=== PATIENT | female | born 1980 | race Caucasian/White ===

== ENCOUNTER 2017-07-03 01:29 | Emergency (ER) | payer OTHER ==
[2017-07-03 04:14] VITALS: BP 131/86
== END 2017-07-03 05:20 | disposition home or self-care (01) ==
LOC: ED 01:29
DX: M54.2 Cervicalgia (principal); R51 Headache

== ENCOUNTER 2018-07-29 17:42 | Emergency (ER) | payer OTHER ==
[~2018-07-29] VITALS: Ht 160 cm; Wt 90.7 kg
[2018-07-29 17:49] VITALS: Ht 160 cm; Wt 90.7 kg
[2018-07-29 22:05] VITALS: BP 120/70
== END 2018-07-29 22:05 | disposition home or self-care (01) ==
LOC: ED 17:42
DX: S33.5XXA Sprain of ligaments of lumbar spine, initial encounter (principal); V49.49XA Driver injured in collision with other motor vehicles in traffic accident, initial encounter; Y93.I9 Activity, other involving external motion; Y92.413 State road as the place of occurrence of the external cause; Y99.8 Other external cause status
CPT/HCPCS: J1885

== ENCOUNTER 2019-03-29 06:51 | Inpatient (IN) | payer OTHER ==
[~2019-03-29] VITALS: Ht 172.7 cm; Wt 90.0 kg
--- NOTE | 2019-03-29 07:12 | NUR ---
PER PT SHE HAS BEEN HAVING GENERALIZED BODY PAIN SINCE TUESDAY. PER PT SAVANNAH LLQ/RLQ PRESSURE PAIN. PT ALSO HAS SAVANNAH FLANK PAIN. PT STS THAT WHEN SHE STANDS UP SHE FEELS "DIZZY" WHEN STANDING. PT STS THAT SHE FEELS BETTER WHEN STANDING. PT STS SHE HAS SOME NAUSEA NO VOMITING. PT DENIES ANY BLURRY VISION. PT DENIES ANY ANURIA. PT STS THAT SHE HAS NEVER FELT THIS WAY BEFORE. VSS. RESP E/U. NO DISTRESS NOTED. WILL CONTINUE TO MONITOR.
[2019-03-29 07:44] LABS: microscopic required? YES; urine erythrocyte 3+ (NEGATIVE)
[2019-03-29 07:48] LABS: PLATELET COUNT 165 x10^3mcL (130-400); RED CELL DISTRIBUTION WIDTH 14.1 % (11.5-14.5)
[2019-03-29 07:53] LABS: CALCIUM 8.1 mg/dL (8.5-10.1); CARBON DIOXIDE 22.7 mmol/L (21-32); CHLORIDE SERUM 102 mmol/L (98-107); CREATININE SERUM 0.9 mg/dL (0.6-1.0); GFR1 > 60 mL/min; GLUCOSE SERUM 164 mg/dL (74-106); POTASSIUM SERUM 3.1 mmol/L (3.5-5.1); SODIUM SERUM 135 mmol/L (136-145)
[2019-03-29 07:54] LABS: BASOPHIL % 0 % (0-2)
[2019-03-29 08:03] LABS: ALKALINE PHOSPHATASE 94 U/L (46-116); ALT/SGPT 21 U/L (14-59); AST/SGOT 10 U/L (15-37); BILIRUBIN TOTAL 0.84 mg/dL (0.20-1.00); TOTAL PROTEIN, SERUM 7.2 g/dL (6.4-8.2)
[2019-03-29 08:04] LABS: AMPHETAMINE QUAL UR POSITIVE (See below)
--- NOTE | 2019-03-29 08:07 | NUR ---
PT TAKEN TO XRAY VIA WHEELCHAIR, S/L. PT ASKING FOR PAIN MEDS, THIS RN WILL MAKE PRIMARY RN AWARE. NO APPARENT S/S OF DISTRESS.
[2019-03-29 08:08] LABS: FREE T4 1.11 ng/dL (0.76-1.46); T4(THYROXINE) 5.5 ug/dL (4.7-13.3)
[2019-03-29 08:18] LABS: CREATINE KINASE 20 U/L (26-192)
[2019-03-29 08:30] LABS: T3 TOTAL 0.69 ng/mL
[2019-03-29 08:31] LABS: ALBUMIN 2.9 g/dL (3.4-5.0)
[2019-03-29 08:32] LABS: C REACTIVE PROTEIN 26.4 mg/dL (<=0.9)
[2019-03-29 08:46] LABS: ERYTHROCYTE SED RATE 58 mm/hr (0-20)
[2019-03-29 08:47] LABS: CK-MB < 0.5 ng/mL (0-3.6)
--- NOTE | 2019-03-29 11:05 | NUR ---
REPORT GIVEN TO HOWARD ROSADO, TO ASSUME CARE OF PT.
[2019-03-29 11:07] LABS: CHOLESTEROL/HDL RATIO 2.8; MAGNESIUM 1.7 mg/dL (1.8-2.4)
--- NOTE | 2019-03-29 11:44 | NUR ---
LATE ENTRY: RECEIVED PT FROM ED [facility]IA [employer] AT 11:20 AM. PT AMBULATORY WITH FULL ROM, GAIT STEADY. ACCOMPANIED BY FAMILY MEMBER. AA/OX4. NO S/S OF ACUTE DISTRESS. CAME TO ED DUE TO GENERALIZED BODY ACHES X3 DAYS WITH C/O INTERMITTENT DIZZINESS/NAUSEA/ASH. GIVEN PO PAIN MED, SEE MAR. RATES PAIN 10/10 GENERALIZED ACHING. WORSE WITH ACTIVITY. RELIEVE BY PAIN MEDS/RESTING. FOLLOWS COMPLEX COMMANDS, RESPONDS TO VERBAL STIMULI. FACE SYMMETRICAL. SPEECH CLEAR. INSTRUCTED TO USE CALL LIGHT TO CALL FOR ASSISTANCE BEFORE ATTEMPTING TO GET OOB. VERBALIZED UNDERSTANDING. FALL PRECAUTIONS IN PLACE. IV WNL TO LAC, NO REDNESS, NO SWELLING, NO INFILTRATION. PATENT AND FLUSHES WELL. IV FLUIDS FLOWING. NO CHEST PAIN. MEDSURG. PULSES +2 BUE/BLE. NO EDEMA. CAP REFILLS <3 SEC BUE/BLE. NO TENTING NOTED. REPORTS MILD SOB WITH ANXIETY. O2 SAT 96% ON ROOM AIR. RR EVEN/SHALLOW/UNLABORED AT THIS TIME. REPORTS CHILLS. TEMP 99.7F. BED IN LOW POSITION. CALL LIGHT WITHIN REACH. ORIENTED TO SURROUNDINGS. SKIN WARM, DRY, INTACT. SIDE RAILS UP X2. WILL CONTINUE TO MONITOR.
[2019-03-29 11:49] VITALS: BP 131/81
--- NOTE | 2019-03-29 12:22 | NUR ---
PT RESTING IN BED WITH BOTH EYES CLOSED. NO S/S OF ACUTE DISTRESS. NO SOB ON ROOM AIR. REPORTS PAIN DECREASED, REPORTS PAIN TOLERABLE AT THIS TIME, RATES GENERALIZED BODY ACHE PAIN 2/10. IV WNL TO LAC, NO REDNESS, NO SWELLING, NO INFILTRATION. PATENT AND FLUSHES WELL. IV FLUIDS FLOWING. NO N/V. NO ASH. NO DIZZINESS. AMBULATORY WITH FULL ROM, GAIT STEADY. VOID X1. NO COMPLAINT OF PAIN WITH URINATION. BED IN LOW POSITION. CALL LIGHT WITHIN REACH. WILL CONTINUE TO MONITOR.
--- NOTE | 2019-03-29 16:14 | NUR ---
PT RESTING IN BED WITH BOTH EYES CLOSED. NO S/S OF ACUTE DISTRESS. NO SOB ON ROOM AIR. NO S/S OF PAIN. CALM/COOPERATIVE. TOLERATING REGULAR DIET WELL. NO N/V AT THIS TIME. BED IN LOW POSITION. CALL LIGHT WITHIN REACH. WILL CONTINUE TO MONITOR.
[2019-03-29 16:27] VITALS: BP 91/63
--- NOTE | 2019-03-29 18:26 | NUR ---
PT LAYING IN BED. AA/OX4. DENIES PAIN AT THIS TIME. NO N/V. NO SOB ON ROOM AIR. NO ASH. NO DIZZINESS. NO CHEST PAIN. NO CHILLS. VS STABLE. CALM/COOPERATIVE. IV WNL TO LAC, PATENT AND FLUSHES WELL. IV FLUIDS FLOWING. PT CALM/COOPERATIVE. BED IN LOW POSITION. CALL LIGHT WITHIN REACH. FAMILY AT BEDSIDE. TOLERATING REGULAR DIET WELL. WILL ENDORSE TO ONCOMING SHIFT.
--- NOTE | 2019-03-29 20:36 | NUR ---
RECEIVED PT IN BED C/O HEADACHE WILL MEDICATE PT WITH PRN ORDERED, LUNG SOUNDS CTA , ABD SOFT BS ACTIVE X4, PIV INTACT INFUSING WELL .DR AMAYA AWARE OF BLOOD CULTURE RESULTS. CALL LIGHT WITHIN PT'S REACH , WILL CON'T TO MONIOTOR AND ASSIST PT WITH CARE .
[2019-03-29 21:40] VITALS: BP 102/73; Ht 172.7 cm; Wt 90.0 kg
--- NOTE | 2019-03-30 06:12 | NUR ---
I HAVE REVIEWED THE DATA COLLECTION BY LENS POLISHER HAND (NAME):RENETTA CARROLL ENTERED ON (DATE/TIME): I CONCUR WITH THE DATA AND ANY EXCEPTIONS OR COMMENTS ARE LISTED BELOW:
[2019-03-30 06:15] VITALS: BP 106/70
--- NOTE | 2019-03-30 06:46 | NUR ---
NO CHANGES OF CONDITION NOTED, ALL DUE MEDS GIVEN NO REACTION NOTED, PIV INTACT INFUSING WELL .
[2019-03-30 07:00] LABS: BASOPHIL % 0.1 % (0-2); PLATELET COUNT 162 x10^3mcL (130-400); RED CELL DISTRIBUTION WIDTH 14.5 % (11.5-14.5)
[2019-03-30 07:10] LABS: CALCIUM 7.9 mg/dL (8.5-10.1); CARBON DIOXIDE 26.9 mmol/L (21-32); CHLORIDE SERUM 106 mmol/L (98-107); CREATININE SERUM 0.7 mg/dL (0.6-1.0); GFR1 > 60 mL/min; GLUCOSE SERUM 96 mg/dL (74-106); POTASSIUM SERUM 4.3 mmol/L (3.5-5.1); SODIUM SERUM 139 mmol/L (136-145)
--- NOTE | 2019-03-30 07:18 | NUR ---
RECEIVED REPORT FROM RENETTA HWANG. PATIENT SLEEPING COMFORTABLY IN BED. IV TO LAC IS PATENT AND INFUSING NS @ 100 ML/HR. NO REDNESS OR PAIN. PT ON ROOM AIR. NO DISTRESS NOTED. ALL QUESTIONS AND CONCERNS ADDRESSED.
[2019-03-30 07:40] VITALS: BP 109/72
--- NOTE | 2019-03-30 09:11 | NUR ---
IN TO SEE PATIENT AND ADMINISTER MEDICATION (SEE eMAR). PT RESTING COMFORTABLY IN BED WITH ALL NEEDS MET.
--- NOTE | 2019-03-30 10:30 | NUR ---
PER CANDI WINSTON, PT IS OK TO TAKE A SHOWER. PT TAKING SHOWER NOW.
--- NOTE | 2019-03-30 11:07 | NUR ---
IN TO SEE PATIENT AND ADMINISTER PAIN MEDICATION FOR 9/10 FULL BODY PAIN AND HEADACHE (SEE eMAR). PT RESTING COMFORTABLY IN BED WITH ALL OTHER NEEDS MET.
--- NOTE | 2019-03-30 13:09 | NUR ---
IN TO SEE PATIENT AND ASSESS NEEDS BEFORE LUNCH. PT SLEEPING COMFORTABLY IN BED WITH ALL NEEDS MET. WILL REASSESS AGAIN AFTER LUNCH.
--- NOTE | 2019-03-30 14:02 | NUR ---
IN TO SEE PATIENT AND ASSESS NEEDS AFTER LUNCH. PT IS SLEEPING COMFORTABLY IN BED. NO NEEDS IDENTIFIED.
[2019-03-30 16:45] VITALS: BP 110/76
--- NOTE | 2019-03-30 18:52 | NUR ---
NO SIGNIFICANT CHANGES THROUGHOUT THE DAY. PATIENT RESTING COMFORTABLY IN BED WITH DAUGHTER AT BEDSIDE. ALL NEEDS MET. NEW IV TO RFA IS PATENT AND INFUSING NS @ 100 ML/HR. NO REDNESS OR PAIN. PT ON ROOM AIR. NO DISTRESS NOTED. PT C/O BODY PAIN 02/05. WILL MEDICATE AND ENDORSE ALL CARE TO ONCOMING NURSE.
--- NOTE | 2019-03-30 19:15 | NUR ---
REPORT RECEIVED FROM DAY SHIFT RN. PATIENT WAS SEEN AND IS RESTING COMFORTABLY IN BED. NO DISTRESS NOTED. BREATHING EVEN AND UNLABORED ON ROOM AIR. NO SOB OR RESP DISTRESS NOTED. DENIES CHEST PAIN. NO C/O PAIN. REPORTS HAVING DIZZINESS AND NAUSEA WHEN SHE WAS STANDING. WHEN PATIENT SAT BACK DOWN IN BED, SHE SAID DIZZINESS AND NAUSEA WENT AWAY. EDUCATED PATIENT TO SLOWLY GO FROM SITTING TO STANDING POSITION. EDUCATED PATIENT TO DANGLE FEET ON SIDE OF THE BED FOR A BIT BEFORE STANDING TO PREVENT DIZZINESS. PATIENT VERBALIZED UNDERSTANDING. IV TO THE RFA INFUSING WELL. PATENT AND INTACT. NO REDNESS OR SWELLING NOTED. COMFORT AND SAFETY MEASURES IN PLACE. BED IS LOCKED AND IN THE LOWEST POSITION. SIDE RAILS UP X2. CALL LIGHT IS WITHIN REACH. WILL CONTINUE TO MONITOR.
[2019-03-30 20:28] VITALS: BP 111/65
--- NOTE | 2019-03-30 20:45 | NUR ---
PATIENT CALLED SAYING SHE WANTS TO TALK TO THE DOCTOR ABOUT HER LAB/TEST RESULTS AND THE NEXT PLAN FOR HER. DR AMAYA MADE AWARE AND SAID HE WILL TALK TO HER.
--- NOTE | 2019-03-30 22:12 | NUR ---
DR MCDONALD AND DR AMAYA SAW THE PATIENT. C/O INSOMNIA. ADMINSITERED AMBIEN PRN. NO C/O PAIN. NO DISTRESS NOTED. SAFETY PRECAUTIONS IN PLACE. CALL LIGHT IS WITHIN REACH. WILL CONTINUE TO MONITOR.
--- NOTE | 2019-03-31 00:32 | NUR ---
PATIENT IS RESTING IN BED WITH EYES CLOSED. NO DISTRESS NOTED. BREATHING EVEN AND UNLABORED. IVF INFUSING WELL. NO S/S OF PAIN NOTED. SAFETY MEASURES IN PLACE. CALL LIGHT IS WITHIN REACH. WILL CONTINUE TO MONITOR.
--- NOTE | 2019-03-31 03:56 | NUR ---
PATIENT RESTING IN BED WITH EYES CLOSED. NO DISTRESS NOTED. BREATHING EVEN AND UNLABORED ON ROOM AIR. NO SOB OR RESP DISTRESS NOTED. NO S/S OF PAIN NOTED. SAFETY MEASURES IN PLACE. CALL LIGHT IS WITHIN REACH. WILL CONTINUE TO MONITOR
--- NOTE | 2019-03-31 05:17 | NUR ---
C/O 6/10 DISCOMFORT LIKE PAIN TO BACK AND FLANKS. EDUCATED PATIENT THATS PAIN TO THE FLANKS IS A SYMPTOM OF A UTI. ADMINISTERED NORCO PRN PRESCRIBED. EDUCATED PATIENT ON POSS ADVERSE EFFECT. DEMONSTRATED UNDERSTANDING. BREATHING EVEN AND UNLABORED ON ROOM AIR. NO DISTRESS NOTED. SAFETY MEASURES IN PLACE. CALL LIGHT IS WITHIN REACH. WILL CONTINUE TO MONITOR.
[2019-03-31 05:29] VITALS: BP 111/71
--- NOTE | 2019-03-31 06:06 | NUR ---
PATIENT RESTED IN LONG INTERVALS THROUGHOUT THE NIGHT. NO ACUTE CHANGES NOTED. BREATHING EVEN AND UNLABORED ON ROOM AIR. DENIES CHEST PAIN. C/O PAIN X1 TO BACK AND FLANKS. MEDICATED WITH PRN NORCO WITH GOOD RELIEF. IV TO THE RFA INFUSING 100ML/HR OF NS WELL. PATENT AND INTACT. NO REDNESS OR SWELLING NOTED. SAFETY MEASURES IN PLACE. ALL NEEDS AND CONCERNS ADDRESSED. CALL LIGHT IS WITHIN REACH. WILL CONTINUE TO MONITOR AND ENDORSE CARE TO DAY SHIFT RN
[2019-03-31 06:48] LABS: BASOPHIL % 0.2 % (0-2); CALCIUM 8.3 mg/dL (8.5-10.1); CARBON DIOXIDE 26.5 mmol/L (21-32); CHLORIDE SERUM 106 mmol/L (98-107); CREATININE SERUM 0.6 mg/dL (0.6-1.0); GFR1 > 60 mL/min; GLUCOSE SERUM 101 mg/dL (74-106); MAGNESIUM 1.7 mg/dL (1.8-2.4); PLATELET COUNT 182 x10^3mcL (130-400); POTASSIUM SERUM 3.4 mmol/L (3.5-5.1); RED CELL DISTRIBUTION WIDTH 14.1 % (11.5-14.5); SODIUM SERUM 141 mmol/L (136-145)
--- NOTE | 2019-03-31 07:23 | NUR ---
RECEIVED PT FROM SHIFT NURSE ASLEEP BUT AROUSABLE. NO ACUTE DISTRESS NOTED. IV INTACT AND PATENT. BED IN LOW POSITION. CALL LIGHT WITHIN REACH. WILL CONTINUE TO MONITOR.
[2019-03-31 09:03] VITALS: BP 110/68
--- NOTE | 2019-03-31 10:00 | NUR ---
PT SITTING UP IN BED TALKING WITH FAMILY MEMBERS. NO C/O OF FLANK PAIN. CALL LIGHT WITHIN REACH. WILL CONTINUE TO MONITOR.
--- NOTE | 2019-03-31 12:00 | NUR ---
PT ASLEEP IN BED BUT AROUSABLE. NO ACUTE DISTRESS NOTED. CALL LIGHT WITHIN REACH. WILL CONTINUE TO MONITOR.
--- NOTE | 2019-03-31 15:11 | NUR ---
PT RESTING IN BED. NO C/O OF PAIN OR DISCOMFORT. FAMILY MEMBERS AT BEDSIDE. CALL LIGHT WITHIN REACH. WILL CONTINUE TO MONITOR.
--- NOTE | 2019-03-31 17:35 | NUR ---
PT FEELING ANXIOUS. GAVE ATIVAN ORDERED. WILL CONTINUE TO MONITOR.
[2019-03-31 17:47] VITALS: BP 115/77
--- NOTE | 2019-03-31 18:36 | NUR ---
PT RESTING IN BED TALKING ON THE PHONE. NO ACUTE DISTRESS. DENIES ANY FLANK PAIN. IV INTACT AND PATENT. CALL LIGHT WITHIN REACH. WILL BE ENDORSED.
--- NOTE | 2019-03-31 19:30 | NUR ---
RECIEVED PATIENT AT START OF SHIFT A/O X4, MED-SURG, DENIES PAIN, NO SOB ON RA. PATIENT AMBULATORY AND IS WALKING AROUND ROOM TALKING ON HER PHONE. IV TO RFA IS INFUSING WITHOUT ERYTHEMA OR INFILTRATION. BED LOCKED AND IN LOWEST POSITON. CALL LIGTH AND BEDSIDE TABLE WITHIN REACH FROM BED.
[2019-03-31 20:30] VITALS: BP 121/79
--- NOTE | 2019-03-31 20:30 | NUR ---
PATIENT STATES THAT HER PRN AMBIEN HAS BEEN GIVING HER NIGHMARES AND IS REQUESTING BENADRYL INSTEAD TO HELP HER SLEEP. DR. AMAYA INFORMED, AWAITING NEW ORDER.
--- NOTE | 2019-03-31 21:09 | NUR ---
BENADRYL GIVEN PER EMAR PER PATIENT'S REQUEST.
--- NOTE | 2019-04-01 00:20 | NUR ---
PATIENTS EYES ARE CLOSED, BREATHS EVEN AND REGULAR. CALL LIGHT WITHIN REACH. BED LOCKED AND IN LOWEST POSITION.
--- NOTE | 2019-04-01 05:18 | NUR ---
PATIENT REQUESTING PAIN MEDICATION FOR 10/10 ABDOMINAL PAIN SHE DESCRIBED CRAMPS. MEDICATED WITH NORCO PER EMAR.
[2019-04-01 05:36] VITALS: BP 117/74
[2019-04-01 06:33] LABS: CALCIUM 8.2 mg/dL (8.5-10.1); CARBON DIOXIDE 25.2 mmol/L (21-32); CHLORIDE SERUM 106 mmol/L (98-107); CREATININE SERUM 0.7 mg/dL (0.6-1.0); GFR1 > 60 mL/min; GLUCOSE SERUM 94 mg/dL (74-106); POTASSIUM SERUM 4.6 mmol/L (3.5-5.1); SODIUM SERUM 139 mmol/L (136-145)
[2019-04-01 06:49] LABS: BASOPHIL % 0.4 % (0-2); PLATELET COUNT 232 x10^3mcL (130-400); RED CELL DISTRIBUTION WIDTH 14.3 % (11.5-14.5)
--- NOTE | 2019-04-01 07:06 | NUR ---
RECEIVED PT FROM SHIFT NURSE ASLEEP BUT AROUSABLE. NO ACUTE DISTRESS NOTED. IV INTACT AND PATENT. CALL LIGHT WITHIN REACH. WILL CONTINUE TO MONITOR.
[2019-04-01 08:35] VITALS: BP 112/74
--- NOTE | 2019-04-01 09:27 | NUR ---
PT ASLEEP BUT AROUSABLE. CALL LIGHT WITHIN REACH. WILL CONTINUE TO MONITOR.
[2019-04-01] MEDS ORDERED: LEVAQUIN750 MG PO (11:36)
[2019-04-01 11:55] VITALS: BP 112/74
[2019-04-01 11:56] VITALS: BP 112/74
--- NOTE | 2019-04-01 12:15 | NUR ---
PT A/OX4 UPON DC. DENIES ANY DIZZINESS OR FLANK PAIN. IV REMOVED AND CATH INTACT. NEW RX GIVEN. INSTRUCTED TO FOLLOW UP WITH PCP. EDUCATION PROVIDED. NOTE GIVEN. PT VERBALIZED UNDERSTANDING. PERSONAL BELONGINGS TAKEN HOME. ACCOMPANIED BY INSPECTOR WIRE ROPE TO LOBBY.
== END 2019-04-01 12:35 | disposition home or self-care (01) | DRG 720 ==
LOC: ED 06:51 → DU 10:20 → MU 10:20 → DU 11:22 → MU 14:56
PROVIDERS: Specialist; ADMIT Internal Medicine
DX: A41.51 Sepsis due to Escherichia coli [E. coli] (principal); E83.42 Hypomagnesemia; E87.6 Hypokalemia; N39.0 Urinary tract infection, site not specified; F15.10 Other stimulant abuse, uncomplicated; B96.20 Unspecified Escherichia coli [E. coli] as the cause of diseases classified elsewhere; Z87.440 Personal history of urinary (tract) infections
CPT/HCPCS: 36600; 83880; 84439; 87804; G0378; J0696; J1200; J1885; J2270; J2405; J3475; J7030; J7060; Q0092; Q9967

== ENCOUNTER 2019-04-03 01:59 | Emergency (ER) | payer OTHER ==
[~2019-04-03] VITALS: Ht 170.2 cm; Wt 89.8 kg
[~2019-04-03 01:59] MED LIST: LEVAQUIN750 MG PO
[2019-04-03 02:02] VITALS: Ht 170.2 cm; Wt 89.8 kg
[2019-04-03 03:07] LABS: CALCIUM 9.2 mg/dL (8.5-10.1); CARBON DIOXIDE 27.9 mmol/L (21-32); CHLORIDE SERUM 103 mmol/L (98-107); CREATININE SERUM 0.8 mg/dL (0.6-1.0); GFR1 > 60 mL/min; GLUCOSE SERUM 95 mg/dL (74-106); POTASSIUM SERUM 3.7 mmol/L (3.5-5.1); SODIUM SERUM 140 mmol/L (136-145)
[2019-04-03 03:20] LABS: ALBUMIN 2.8 g/dL (3.4-5.0); ALKALINE PHOSPHATASE 100 U/L (46-116); ALT/SGPT 54 U/L (14-59); AST/SGOT 50 U/L (15-37); BILIRUBIN TOTAL 0.19 mg/dL (0.20-1.00); T4(THYROXINE) 6.9 ug/dL (4.7-13.3); TOTAL PROTEIN, SERUM 7.3 g/dL (6.4-8.2)
[2019-04-03 03:21] LABS: BASOPHIL % 0.5 % (0-2); PLATELET COUNT 353 x10^3mcL (130-400); RED CELL DISTRIBUTION WIDTH 13.1 % (11.5-14.5)
[2019-04-03 04:10] LABS: AMPHETAMINE QUAL UR POSITIVE (See below)
[2019-04-03 04:16] VITALS: BP 113/65
== END 2019-04-03 04:16 | disposition home or self-care (01) ==
LOC: ED 01:59
PROVIDERS: Emergency Medicine
DX: F41.9 Anxiety disorder, unspecified (principal)
CPT/HCPCS: 36415; Q0092